=== PATIENT | male | born 1960 | race Caucasian/White ===

== ENCOUNTER 2017-08-15 13:53 | Inpatient (IN) ==
--- NOTE | 2017-08-15 15:18 | Internal Med History&Physical ---
Date of Encounter: 08/15/17 Time of Encounter: 15:18 Internal Medicine - H&P: HPI Chief complaint: SOB History of present illness: Mr. Allen is a 57 year old male medical history of end-stage renal on maintenance hemodialysis Sunday, who presented with productive cough of hick yellow tenacious phlegm and congestion this was not improved with oral antibiotics as an outpatient. he was evaluated by the ER states and due to concern of healthcare associated pneumonia, he was admitted for further evaluation and management. Past Med Surg Social Fam HX - Past Medical History Medical history: dialysis, renal disease Psychiatric history: no psych history - Social History Smoking Status: Current every day smoker Smokeless Tobacco Status: No Alcohol use: none Drug use: none Internal Medicine - H&P: Meds Cinacalcet [Sensipar] 30 mg PO DAILY 08/15/17 [History] Folic Acid/Vit Bcomp,C [Renal Vitamin Tablet] 0.8 mg PO DAILY 08/15/17 [History] Ferric Citrate [Auryxia] 1 tab PO AD PRN 08/16/17 [History] Albuterol Sulfate [Albuterol Inhaler] 1 puff IH Q4HR PRN #1 inhaler 08/20/17 [Rx ] Nicotine Patch [Nicoderm] 21 mg TD DAILY #30 patch.td24 08/20/17 [Rx] levoFLOXacin [Levaquin] 500 mg PO DAILY #5 tablet 08/20/17 [Rx] predniSONE [PredniSONE] 40 mg PO DAILY #5 tablet 08/20/17 [Rx] 3 Allergy/AdvReac Type Severity Reaction Status Date / Time No Known Allergies Allergy Verified 08/15/17 11:25 All Systems PM: A 10-system review of systems was performed and is negative for pertinent findings except as documented above in the HPI. - Constitutional Constitutional: fatigue, fever(s), no chills, no night sweats - Cardiovascular Cardiovascular ROS IM: dyspnea, no chest pain, no diaphoresis, no lightheadedness, no palpitations, no syncope - Respiratory Respiratory: cough, dyspnea, wheezing, no excessive phlegm production - Gastrointestinal Gastrointestinal: no abdominal pain, no diarrhea, no hematemesis, no hematochezia, no melena, no nausea, no vomiting - Neurological Neurological ROS: no confusion, no convulsions, no focal weakness, no numbness, no tingling, no tremor(s) - Head Head exam: Present: atraumatic, normocephalic - Neck Neck exam general surgery: Present: supple, trachea midline. Absent: lymphadenopathy - Respiratory Respiratory exam: Present: decreased breath sounds, rhonchi. Absent: accessory muscle use, rales, wheezes - Cardiovascular Cardiovascular exam: Present: RRR, +S1, +S2. Absent: diastolic murmur, gallop, rubs, systolic murmur - GI/Abdominal GI/Abdominal exam: Present: normal bowel sounds, soft, no peritoneal signs. Absent: distended, tenderness - Extremities Exam Extremities exam: Present: warm, radial pulses palpable and symmetrical. Absent : calf tenderness, cyanotic, pedal edema Internal Med - H&P Results - Labs CBC & Chem 7: 08/20/17 04:00 08/20/17 04:00 - Assessment and plan (1) Healthcare-associated pneumonia Status: Acute Assessment and plan: - SOB due to *Pneumonia - Blood Cx - Urine Legionella antigen - Antibiotics - CBCD, CMP in AM - Tylenol 650 mg PO q 4-6 hr PRN pain or fever - Home meds - check the list and restart accordingly - Heparin 5000 U SQ BID (2) ESRD (end stage renal disease) Status: Acute Assessment and plan: we'll continue maintenance hemodialys, Sunday, Nephrology was consulted for further evaluation and management (3) Anemia in chronic kidney disease Status: Acute Assessment and plan: hemoglobin target is10-11, ESAs as per outpatient protocol Qualifiers: Chronic kidney disease stage: unspecified stage Qualified Code(s): N18.9 - Chronic kidney disease, unspecified; D63.1 - Anemia in chronic kidney disease (4) Chronic kidney disease-mineral and bone disorder Status: Acute Assessment and plan: We will obtain IPTH , VIT D levels as wel as phos level, renal diet. (5) DVT prophylaxis Status: Acute Assessment and plan: SC heparin - Time Spent With Patient Total time spent is greater than 50% in coordination of care (as documented) at patient's floor/unit and/or counseling patient:
[2017-08-15] MEDS ORDERED: *HR* HYDROcodone/Acet 5/325 mg TABLET PO PRN (17:01)
[2017-08-15] MEDS ORDERED: Naloxone 0.4 MG/ML INJ IVP PRN (17:01)
[2017-08-15] MEDS: Piperacillin/Tazobactam 3.375 GM in 0.9 % Sodium Chloride Mini Bag 100 ML IVPB SCH (17:41)
[2017-08-15] MEDS: *HR* Heparin 5,000 UNIT/ML VIAL SQ SCH (17:41)
[2017-08-15] MEDS ORDERED: Vancomycin (wt based) 1,000 MG VIAL IVPB SCH (18:00)
[2017-08-15 18:07] LABS: INR 1.4; Prothrombin Time 15.4 Seconds (9.4-12.1)
[2017-08-16] MEDS ORDERED: Nicotine 21 MG PATCH.TD24 TD ONE (01:01)
[2017-08-16] MEDS: *HR* Heparin 5,000 UNIT/ML VIAL SQ SCH ×2 (05:55→16:20)
[2017-08-16] MEDS: Piperacillin/Tazobactam 3.375 GM in 0.9 % Sodium Chloride Mini Bag 100 ML IVPB SCH ×2 (05:55→16:20)
[2017-08-16 06:47] LABS: Basophils % 0.1 %; Hematocrit 36.8 % (37.5-50.1); Hemoglobin 12.3 g/dL (12.9-16.9); Immature Granulocytes % 0.9 % (0-4); Lymphocytes # 0.6 K/mcL (0.6-4.6); Lymphocytes % 5.3 %; Mean Corpuscular HGB Conc 33.4 g/dL (31.6-35.5); Mean Corpuscular Hemoglobin 29.4 pg (28.0-33.3); Mean Platelet Volume 10.3 fL (9.4-12.4); Monocytes # 0.6 K/mcL (0.0-1.3); Monocytes % 5.8 %; Neutrophils # 9.5 K/mcL (1.6-8.9); Platelet Count 258 K/mcL (140-400); Red Blood Count 4.18 M/mcL (4.19-5.50); Red Cell Distribution Width 14.1 % (11.5-14.5); Segmented Neutrophils % 87.9 %
[2017-08-16 07:16] LABS: Albumin 3.7 g/dL (3.5-5.7); Bilirubin,Total 0.2 mg/dL (0.3-1.0); Globulin 3.7 g/dL (2.4-3.5); Magnesium 2.4 mg/dL (1.6-2.6); Phosphorous 7.2 mg/dL (2.7-4.5); Potassium 4.3 mEq/L (3.5-5.1); Total Protein 7.4 g/dL (6.4-8.9)
--- NOTE | 2017-08-16 08:02 | Nephrology Consult Note ---
Date of Encounter: 08/16/17 Time of Encounter: 08:00 Assessment and Plan (1) ESRD (end stage renal disease) Current Visit: Yes Status: Acute Is seen by a founder ceo & president out of [place], dialyzes at [facility]. Continue to avoid nephrotoxins and renal dose all medications. Renal Diet. (2) Healthcare-associated pneumonia Current Visit: Yes Status: Acute Per primary team. (3) Anemia in chronic kidney disease Current Visit: Yes Status: Acute Hgb goal 10-11. 12.3 today, stable. Qualifiers: Qualified Code(s): N18.9 - Chronic kidney disease, unspecified; D63.1 - Anemia in chronic kidney disease History of Present Illness - Reason for Consult Consult date: 08/16/17 end stage renal disease - Chief Complaint PNA - History of Present Illness Mr. Allen is a 57 year old male that is a patient of Dr. Roberto in [place]. His current regimen is MWF at [facility], he did have a full treatment on Sunday of this week. He has been through the pre admission testing for a kidney transplant at [facility], but he has to quit smoking. It has been 3 days since his last cigarette and he is currently using Nicotine patches.He has a right tunneled HD cath that was exchanged about a month and a half ago. 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 He has been short of breath and has been for about a month. He is not on home oxygen and has been treated for outpatient Bronchitis/PNA with 2 z packs and other antibiotics. He is now admitted for IV antibiotics for HCAP. Denies chest pain, nausea, vomiting, diarrhea. Denies fever/chills. Past Med Surg Social Fam HX - Past Medical History Medical history: dialysis, renal disease Psychiatric history: no psych history - Social History Smoking Status: Current every day smoker Smokeless Tobacco Status: No Alcohol use: none Drug use: none Medications and Allergies Cinacalcet [Sensipar] 30 mg PO DAILY 08/15/17 [History] Folic Acid/Vit Bcomp,C [Renal Vitamin Tablet] 0.8 mg PO DAILY 08/15/17 [History] Ferric Citrate [Auryxia] 1 tab PO TIDWM 08/16/17 [History] 3 Allergy/AdvReac Type Severity Reaction Status Date / Time No Known Allergies Allergy Verified 08/15/17 11:25 Review of Systems ROS unobtainable: other (as per HPI.) Exam - Vital Signs Vital signs: Initial Vital Signs Temp Pulse Resp BP Pulse Ox 98.0 F 94 17 143/87 92 08/15/17 15:45 08/15/17 15:45 08/15/17 15:45 08/15/17 15:45 08/15/17 15:45 Vital Signs - Last 8 Hours Temp Pulse Resp BP Pulse Ox 08/16/17 06:57 97.5 F L 93 19 135/94 93 08/16/17 05:24 97.4 F L 96 18 147/96 89 08/16/17 01:22 138/77 08/16/17 00:36 98.5 F 117 18 190/66 91 Intake and Output 08/15/17 08/16/17 08/16/17 23:59 07:59 15:59 Intake Total 460 / 460 Output Total 200 / 200 Balance 260 / 260 Intake: IV Fluids 100 / 100 Zosyn 3.375 GM In 0.9 % Sodium 100 / 100 Chloride (Mini-Bag +) 100 ML @ 25 mls/hr IVPB Q12HR [facility] Rx#: [id number] Oral 360 / 360 Output: Urine 200 / 200 Other: Meal Dinner Percent of Meal Consumed 100% Weight 120 kg Patient Weight 08/16/17 23:59 Weight 120 kg - General Appearance General appearance: well-developed, well-nourished, appears started age EENT: ATNC, hearing intact, vision intact Neck: supple Respiratory: wheezing (throughout.) Cardiology: no edema, regular rate, regular rhythm, normal S1, normal S2 - Dialysis Access Dialysis Vascular Access: Venous Catheter (Permacath to right chest. DRSG C/D/I, ) Gastrointestinal: hypoactive bowel sounds, no tenderness, no guarding Integumentary: no rash, warm and dry Neurologic: alert and oriented x3 Psychiatric: mood/affect appropriate, cooperative Results - Lab Results 08/16/17 06:19 08/16/17 06:19 Most recent lab results Calcium 10.0 mg/dL (8.6-10.3) 08/16/17 06:19 Phosphorus 7.2 mg/dL (2.7-4.5) H 08/16/17 06:19 Magnesium 2.4 mg/dL (1.6-2.6) 08/16/17 06:19 Consult Discharge Plan - Plan Referrals: NONE,PCP [Primary Care Provider] -
[2017-08-16] MEDS: Nicotine 21 MG PATCH.TD24 TD SCH (08:28)
[2017-08-16] MEDS ORDERED: Levofloxacin 750 MG/150 ML 750 MG/150 ML BAG IVPB ONE (12:53)
[2017-08-16] MEDS: Ipratropium/Albuterol Neb 3 ML IH SCH ×3 (15:59→23:24)
[2017-08-16] MEDS: methylPREDNISolone 125 MG/2 ML VIAL IVP SCH (16:19)
[2017-08-16] MEDS ORDERED: 0.9 % Sodium Chloride 250 ML IVC PRN (18:19)
--- NOTE | 2017-08-16 19:08 | Internal Med Progress Note ---
Date of Encounter: 08/16/17 Time of Encounter: 11:00 - Assessment and plan (1) Healthcare-associated pneumonia Current Visit: Yes Status: Acute Assessment and plan: Will continue coverage for HCAP with IV vancomycin, Zosyn and Levaquin (2) ESRD (end stage renal disease) Current Visit: Yes Status: Acute Assessment and plan: we'll continue maintenance hemodialys, Sunday, Nephrology was consulted for further evaluation and management (3) Anemia in chronic kidney disease Current Visit: Yes Status: Acute Assessment and plan: hemoglobin target is10-11, ESAs as per outpatient protocol Qualifiers: Chronic kidney disease stage: stage 3 (moderate) Qualified Code(s): N18.3 - Chronic kidney disease, stage 3 (moderate); D63.1 - Anemia in chronic kidney disease (4) Chronic kidney disease-mineral and bone disorder Current Visit: Yes Status: Acute Assessment and plan: We will obtain IPTH , VIT D levels as wel as phos level, renal diet. (5) DVT prophylaxis Current Visit: Yes Status: Acute Assessment and plan: SC heparin - Time Spent With Patient Total time spent is greater than 50% in coordination of care (as documented) at patient's floor/unit and/or counseling patient: - Subjective Interval history: Patient still reports of shortness of breath with wheezing this morning and requiring supplemental oxygenation. - Constitutional Vitals: Temp Pulse Resp BP Pulse Ox 97.5 F L 99 19 147/89 93 08/16/17 16:35 08/16/17 16:35 08/16/17 16:35 08/16/17 16:35 08/16/17 16:35 - Respiratory Respiratory exam: Present: CTAB. Absent: accessory muscle use, rales, rhonchi, wheezes - Cardiovascular Cardiovascular exam: Present: RRR, +S1, +S2. Absent: diastolic murmur, gallop, rubs, systolic murmur Internal Medicine: Result - Labs CBC & Chem 7: 08/16/17 06:19 08/16/17 06:19 Labs: Short CBC 08/16/17 Range/Units 06:19 WBC 10.8 (4.3-11.1) K/mcL Hgb 12.3 L (12.9-16.9) g/dL Hct 36.8 L (37.5-50.1) % Plt Count 258 (140-400) K/mcL Neutrophils # 9.5 H (1.6-8.9) K/mcL BMP 08/16/17 06:19 Sodium 132 L Potassium 4.3 Chloride 92 L Carbon Dioxide 25 BUN 52 H Creatinine 7.79 H Glucose 189 H Calcium 10.0 Cardiac Enzymes 08/15/17 08/16/17 08/16/17 Range/Units 23:26 06:19 10:52 Troponin I < 0.03 0.05 H* 0.03 (< 0.04) ng/mL Liver Function 08/16/17 Range/Units 06:19 Total Bilirubin 0.2 L (0.3-1.0) mg/dL AST 20 (13-39) Units/L ALT 13 (7-52) Units/L Alkaline Phosphatase 89 (34-104) Units/L Albumin 3.7 (3.5-5.7) g/dL - ABG Interpretation ABG results: PT/INR, D-dimer PT 15.4 Seconds (9.4-12.1) H 08/15/17 17:30 Consult Discharge Plan - Plan Referrals: NONE,PCP [Primary Care Provider] -
[2017-08-17] MEDS: methylPREDNISolone 125 MG/2 ML VIAL IVP SCH ×4 (00:08→23:46)
[2017-08-17 02:25] LABS: Hepatitis B Surface Antigen Nonreactive (Nonreactive)
[2017-08-17 02:26] LABS: Hepatitis B Surface Antibody 62.42 mIU/mL
[2017-08-17] MEDS ORDERED: 0.9 % Sodium Chloride 1,000 ML ONE (03:57)
[2017-08-17] MEDS: Ipratropium/Albuterol Neb 3 ML IH SCH ×5 (04:00→19:17)
[2017-08-17] MEDS: *HR* Heparin 5,000 UNIT/ML VIAL SQ SCH ×2 (05:05→17:46)
[2017-08-17] MEDS: Piperacillin/Tazobactam 3.375 GM in 0.9 % Sodium Chloride Mini Bag 100 ML IVPB SCH ×2 (05:06→18:47)
[2017-08-17 06:09] LABS: Hematocrit 38.3 % (37.5-50.1); Mean Corpuscular HGB Conc 31.3 g/dL (31.6-35.5); Mean Corpuscular Volume 89.3 fL (83.0-100.0); Mean Platelet Volume 10.5 fL (9.4-12.4); Platelet Count 300 K/mcL (140-400); Red Blood Count 4.29 M/mcL (4.19-5.50); Red Cell Distribution Width 14.1 % (11.5-14.5)
[2017-08-17 06:26] LABS: Calcium 9.5 mg/dL (8.6-10.3); Potassium 4.2 mEq/L (3.5-5.1)
--- NOTE | 2017-08-17 09:05 | Nephrology Progress Note ---
Date of Encounter: 08/17/17 Time of Encounter: 09:03 - Assessment and Plan (1) ESRD (end stage renal disease) Current Visit: Yes Status: Acute ESRD, HD at [facility]. Encouraged to quit smoking so he could be considered for kidney transplant. Continue to avoid nephrotoxins and renal dose all meds. (2) Healthcare-associated pneumonia Current Visit: Yes Status: Acute Per primary team. (3) Anemia in chronic kidney disease Current Visit: Yes Status: Acute Goal Hgb 10-11. Hgb 12 today. Qualifiers: Chronic kidney disease stage: unspecified stage Qualified Code(s): N18.9 - Chronic kidney disease, unspecified; D63.1 - Anemia in chronic kidney disease Subjective Principal diagnosis: ESRD/Pneumonia Interval history: Pt seen and examined in HD, denies CP/SOB. Denies Nausea. Objective - Vital Signs Vital signs: Vital Signs Temp Pulse Resp BP Pulse Ox 08/17/17 07:33 25 87 08/17/17 07:13 97.5 F L 104 18 130/76 93 08/17/17 04:48 97.6 F 104 18 126/73 89 08/17/17 04:02 18 98 08/16/17 23:34 18 93 08/16/17 22:59 97.9 F 102 18 139/70 94 08/16/17 20:38 97.5 F L 100 18 152/87 92 08/16/17 20:03 18 90 08/16/17 19:50 97.4 F L 101 18 151/83 89 08/16/17 19:36 93 08/16/17 16:35 97.5 F L 99 19 147/89 93 08/16/17 15:59 18 89 08/16/17 11:02 97.5 F L 100 18 136/86 91 Intake and Output 08/16/17 08/17/17 08/17/17 23:59 07:59 15:59 Intake Total 340 / 340 265 / 265 360 / 360 Output Total 200 / 200 Balance 340 / 340 65 / 65 360 / 360 Intake: IV Fluids 100 / 100 25 / 25 Zosyn 3.375 GM In 0.9 % Sodium 100 / 100 25 / 25 Chloride (Mini-Bag +) 100 ML @ 25 mls/hr IVPB Q12HR [facility] Rx#: [id number] Oral 240 / 240 240 / 240 360 / 360 Output: Urine 200 / 200 Other: Meal Dinner Breakfast Percent of Meal Consumed 100% 100% Weight 121.9 kg Patient Weight 08/17/17 23:59 Weight 121.9 kg - General Appearance General appearance: Present: appears started age EENT: Present: ATNC, hearing intact, vision intact Neck: Present: supple Respiratory: Present: clear Cardiology: Present: no edema, regular rate, regular rhythm, normal S1, normal S2 Dialysis Vascular Access: Venous Catheter (Tunneled HD line, DRSG C/D/I) Gastrointestinal: Present: normoactive bowel sounds, no tenderness, no guarding Integumentary: Present: no rash, warm and dry Neurologic: Present: alert and oriented x3 Psychiatric: Present: mood/affect appropriate, cooperative - Lab 08/17/17 05:27 08/17/17 05:27 Most recent lab results Calcium 9.5 mg/dL (8.6-10.3) 08/17/17 05:27 Phosphorus 7.2 mg/dL (2.7-4.5) H 08/16/17 06:19 Magnesium 2.4 mg/dL (1.6-2.6) 08/16/17 06:19 Consult Discharge Plan - Plan Referrals: NONE,PCP [Primary Care Provider] -
[2017-08-17] MEDS: Nicotine 21 MG PATCH.TD24 TD SCH (09:09)
[2017-08-17] MEDS: Renal Vitamin 1 MG CAPSULE PO SCH (09:09)
[2017-08-17] MEDS ORDERED: 0.9 % Sodium Chloride 2,000 ML ONE (09:30)
[2017-08-17] MEDS ORDERED: *HR* Heparin 10,000 UNIT/10 ML VIAL IV PRN (09:54)
[2017-08-17] MEDS: Levofloxacin 500 MG/100 ML 500 MG/100 ML BAG IVPB SCH (17:46)
[2017-08-17] MEDS ORDERED: Vancomycin 500 MG in 0.9 % Sodium Chloride Mini Bag 100 ML IVPB ONE (18:00)
--- NOTE | 2017-08-17 19:10 | Internal Med Progress Note ---
Date of Encounter: 08/17/17 Time of Encounter: 11:00 - Assessment and plan (1) Healthcare-associated pneumonia Current Visit: Yes Status: Acute Assessment and plan: Will continue coverage for HCAP with IV vancomycin, Zosyn and Levaquin (2) ESRD (end stage renal disease) Current Visit: Yes Status: Acute Assessment and plan: Will continue maintenance hemodialys, Sunday, Nephrology following and appreciate recommendations (3) Anemia in chronic kidney disease Current Visit: Yes Status: Acute Assessment and plan: hemoglobin target is10-11, ESAs as per outpatient protocol Qualifiers: Chronic kidney disease stage: unspecified stage Qualified Code(s): N18.9 - Chronic kidney disease, unspecified; D63.1 - Anemia in chronic kidney disease (4) DVT prophylaxis Current Visit: Yes Status: Acute Assessment and plan: SC heparin - Time Spent With Patient Total time spent is greater than 50% in coordination of care (as documented) at patient's floor/unit and/or counseling patient: - Subjective Interval history: Patient reports of improvement of shortness of breath since starting IV antibiotics. - Constitutional Vitals: Temp Pulse Resp BP Pulse Ox 97.9 F 111 17 151/84 90 08/17/17 16:06 08/17/17 16:06 08/17/17 16:06 08/17/17 16:06 08/17/17 16:06 General appearance: Present: A&O X 3 - Respiratory Respiratory exam: Present: CTAB. Absent: accessory muscle use, rales, rhonchi, wheezes - Cardiovascular Cardiovascular exam: Present: RRR, +S1, +S2. Absent: diastolic murmur, gallop, rubs, systolic murmur Internal Medicine: Result - Labs CBC & Chem 7: 08/17/17 05:27 08/17/17 05:27 Labs: Short CBC 08/17/17 Range/Units 05:27 WBC 14.9 H (4.3-11.1) K/mcL Hgb 12.0 L (12.9-16.9) g/dL Hct 38.3 (37.5-50.1) % Plt Count 300 (140-400) K/mcL BMP 08/17/17 05:27 Sodium 132 L Potassium 4.2 Chloride 94 L Carbon Dioxide 20 L BUN 82 H Creatinine 9.16 H Glucose 169 H Calcium 9.5 - ABG Interpretation ABG results: PT/INR, D-dimer PT 15.4 Seconds (9.4-12.1) H 08/15/17 17:30 Consult Discharge Plan - Plan Referrals: NONE,PCP [Primary Care Provider] -
[2017-08-18] MEDS: Ipratropium/Albuterol Neb 3 ML IH SCH ×7 (00:06→23:01)
[2017-08-18 05:25] LABS: Hematocrit 38.9 % (37.5-50.1); Hemoglobin 12.3 g/dL (12.9-16.9); Mean Corpuscular HGB Conc 31.6 g/dL (31.6-35.5); Mean Corpuscular Hemoglobin 28.1 pg (28.0-33.3); Mean Corpuscular Volume 88.8 fL (83.0-100.0); Platelet Count 312 K/mcL (140-400); Red Blood Count 4.38 M/mcL (4.19-5.50); Red Cell Distribution Width 14.4 % (11.5-14.5)
[2017-08-18 05:45] LABS: Calcium 9.4 mg/dL (8.6-10.3); Potassium 4.3 mEq/L (3.5-5.1)
[2017-08-18] MEDS: *HR* Heparin 5,000 UNIT/ML VIAL SQ SCH ×2 (06:43→16:34)
[2017-08-18] MEDS: Piperacillin/Tazobactam 3.375 GM in 0.9 % Sodium Chloride Mini Bag 100 ML IVPB SCH ×2 (06:44→16:34)
[2017-08-18] MEDS: methylPREDNISolone 125 MG/2 ML VIAL IVP SCH (08:02)
[2017-08-18] MEDS: Renal Vitamin 1 MG CAPSULE PO SCH (08:03)
[2017-08-18] MEDS: Nicotine 21 MG PATCH.TD24 TD SCH (08:03)
--- NOTE | 2017-08-18 10:37 | Nephrology Progress Note ---
Date of Encounter: 08/18/17 Time of Encounter: 10:36 - Assessment and Plan (1) ESRD (end stage renal disease) Current Visit: Yes Status: Acute HD MWF. Renal vitamins. Renal dose medications. Renal diet. Additional dialysis and ultrafiltration as needed. No need for dialysis today. (2) Healthcare-associated pneumonia Current Visit: Yes Status: Acute Per primary team. Continue antibiotics. Patient states he is improving. Subjective Principal diagnosis: ESRD/Pneumonia Interval history: Patient seen he has no new complaints. He is feeling slightly better. He denies dyspnea. Objective - Vital Signs Vital signs: Vital Signs Temp Pulse Resp BP Pulse Ox 08/18/17 09:13 97.6 F 124 19 158/85 93 08/18/17 07:28 16 93 08/18/17 04:58 97.7 F 122 17 122/85 93 08/18/17 03:45 20 93 08/18/17 00:07 20 93 08/17/17 20:24 97.8 F 119 20 120/80 93 08/17/17 20:12 94 08/17/17 19:20 16 94 08/17/17 16:06 97.9 F 111 17 151/84 90 08/17/17 15:31 18 90 08/17/17 13:24 97.5 F L 18 122/72 08/17/17 12:30 110/65 08/17/17 12:15 108/71 08/17/17 12:00 106/74 08/17/17 11:45 112/75 08/17/17 11:30 113/79 08/17/17 11:15 122/72 08/17/17 11:00 117/72 08/17/17 10:45 110/77 Intake and Output 08/17/17 08/18/17 08/18/17 23:59 07:59 15:59 Intake Total 760 / 760 120 / 120 Balance 760 / 760 120 / 120 Intake: IV Fluids 100 / 100 Zosyn 3.375 GM In 0.9 % Sodium 100 / 100 Chloride (Mini-Bag +) 100 ML @ 25 mls/hr IVPB Q12HR [facility] Rx#: [id number] Oral 660 / 660 120 / 120 Other: Meal Dinner Percent of Meal Consumed 100% # Voids 1 Weight 118.388 kg Patient Weight 08/18/17 23:59 Weight 118.388 kg - General Appearance General appearance: Present: well-developed, well-nourished EENT: Present: ATNC Additional Comments: Tachycardic. Neurologic: Present: alert and oriented x3 Psychiatric: Present: mood/affect appropriate - Lab 08/18/17 05:04 08/18/17 05:04 Most recent lab results Calcium 9.4 mg/dL (8.6-10.3) 08/18/17 05:04 Phosphorus 7.2 mg/dL (2.7-4.5) H 08/16/17 06:19 Magnesium 2.4 mg/dL (1.6-2.6) 08/16/17 06:19 Consult Discharge Plan - Plan Referrals: NONE,PCP [Primary Care Provider] -
--- NOTE | 2017-08-18 18:33 | Internal Med Progress Note ---
Date of Encounter: 08/18/17 Time of Encounter: 11:00 - Assessment and plan (1) Healthcare-associated pneumonia Current Visit: Yes Status: Acute Assessment and plan: Patient still with expiratory wheezes but improving and reports of improvement shortness of breath. Will continue coverage for HCAP with IV vancomycin, Zosyn and Levaquin (2) ESRD (end stage renal disease) Current Visit: Yes Status: Acute Assessment and plan: Will continue maintenance hemodialys, Sunday, Nephrology following and appreciate recommendations (3) Anemia in chronic kidney disease Current Visit: Yes Status: Acute Assessment and plan: Hemoglobin stable at 12.3 this morning Continue to monitor Qualifiers: Chronic kidney disease stage: unspecified stage Qualified Code(s): N18.9 - Chronic kidney disease, unspecified; D63.1 - Anemia in chronic kidney disease (4) DVT prophylaxis Current Visit: Yes Status: Acute Assessment and plan: SC heparin - Time Spent With Patient Total time spent is greater than 50% in coordination of care (as documented) at patient's floor/unit and/or counseling patient: - Subjective Interval history: Patient continues to have improvement with shortness of breath since starting IV antibiotics treatment of HCAP - Constitutional Vitals: Temp Pulse Resp BP Pulse Ox 98.1 F 116 18 135/76 94 08/18/17 15:53 08/18/17 15:53 08/18/17 15:53 08/18/17 15:53 08/18/17 15:53 General appearance: Present: A&O X 3, no acute distress - Respiratory Respiratory exam: Present: wheezes (Bilateral expiratory wheezes) - Cardiovascular Cardiovascular exam: Present: RRR, +S1, +S2. Absent: diastolic murmur, gallop, rubs, systolic murmur Internal Medicine: Result - Labs CBC & Chem 7: 08/18/17 05:04 08/18/17 05:04 Labs: Short CBC 08/18/17 Range/Units 05:04 WBC 15.4 H (4.3-11.1) K/mcL Hgb 12.3 L (12.9-16.9) g/dL Hct 38.9 (37.5-50.1) % Plt Count 312 (140-400) K/mcL BMP 08/18/17 05:04 Sodium 134 L Potassium 4.3 Chloride 96 L Carbon Dioxide 21 L BUN 62 H Creatinine 6.83 H Glucose 177 H Calcium 9.4 - ABG Interpretation ABG results: PT/INR, D-dimer PT 15.4 Seconds (9.4-12.1) H 08/15/17 17:30 Consult Discharge Plan - Plan Referrals: NONE,PCP [Primary Care Provider] -
[2017-08-19] MEDS: Ipratropium/Albuterol Neb 3 ML IH SCH ×5 (03:28→23:12)
[2017-08-19] MEDS: Piperacillin/Tazobactam 3.375 GM in 0.9 % Sodium Chloride Mini Bag 100 ML IVPB SCH ×2 (05:06→16:48)
[2017-08-19] MEDS: *HR* Heparin 5,000 UNIT/ML VIAL SQ SCH ×2 (05:06→16:48)
[2017-08-19] MEDS: Nicotine 21 MG PATCH.TD24 TD SCH (08:14)
[2017-08-19 08:15] LABS: Hemoglobin 13.1 g/dL (12.9-16.9); Mean Corpuscular Hemoglobin 28.4 pg (28.0-33.3); Mean Corpuscular Volume 88.7 fL (83.0-100.0); Mean Platelet Volume 9.7 fL (9.4-12.4); Platelet Count 309 K/mcL (140-400); Red Blood Count 4.62 M/mcL (4.19-5.50); Red Cell Distribution Width 14.6 % (11.5-14.5)
[2017-08-19] MEDS: Renal Vitamin 1 MG CAPSULE PO SCH (08:15)
[2017-08-19] MEDS: predniSONE 20 MG TABLET PO SCH (08:15)
[2017-08-19 08:44] LABS: Potassium 4.9 mEq/L (3.5-5.1)
--- NOTE | 2017-08-19 10:31 | Nephrology Progress Note ---
Date of Encounter: 08/19/17 Time of Encounter: 10:31 - Assessment and Plan (1) ESRD (end stage renal disease) Current Visit: Yes Status: Acute HD MWF. Renal vitamins. Renal dose medications. Renal diet. Additional dialysis and ultrafiltration as needed. No need for dialysis today. (2) Healthcare-associated pneumonia Current Visit: Yes Status: Acute Per primary team. Continue antibiotics. Patient states he is improving. Subjective Principal diagnosis: ESRD/Pneumonia Interval history: Patient seen he has no new complaints. Objective - Vital Signs Vital signs: Vital Signs Temp Pulse Resp BP Pulse Ox 08/19/17 08:07 97.3 F L 94 18 154/86 95 08/19/17 03:42 97.6 F 89 20 150/85 94 08/19/17 00:18 97.5 F L 94 20 157/90 93 08/18/17 21:45 97.7 F 71 18 118/56 92 08/18/17 19:08 97.6 F 111 18 129/87 94 08/18/17 15:53 98.1 F 116 18 135/76 94 08/18/17 14:00 93 08/18/17 13:24 97.7 F 123 18 157/89 92 08/18/17 11:20 97.8 F 113 18 133/85 93 Intake and Output 08/18/17 08/19/17 08/19/17 23:59 07:59 15:59 Intake Total 720 / 720 580 / 580 240 / 240 Output Total 450 / 450 200 / 200 310 / 310 Balance 270 / 270 380 / 380 -70 / -70 Intake: IV Fluids 100 / 100 Zosyn 3.375 GM In 0.9 % Sodium 100 / 100 Chloride (Mini-Bag +) 100 ML @ 25 mls/hr IVPB Q12HR [facility] Rx#: [id number] Oral 720 / 720 480 / 480 240 / 240 Output: Urine 450 / 450 200 / 200 310 / 310 Other: Meal Dinner crackers Breakfast Percent of Meal Consumed 100% 100% 100% Weight 120.383 kg Patient Weight 08/19/17 23:59 Weight 120.383 kg - General Appearance General appearance: Present: well-developed, well-nourished Exam: He is talking on the phone. EENT: Present: ATNC Cardiology: Present: regular rate Neurologic: Present: alert and oriented x3 Psychiatric: Present: mood/affect appropriate - Lab 08/19/17 07:52 08/19/17 07:52 Most recent lab results Calcium 9.0 mg/dL (8.6-10.3) 08/19/17 07:52 Phosphorus 7.2 mg/dL (2.7-4.5) H 08/16/17 06:19 Magnesium 2.4 mg/dL (1.6-2.6) 08/16/17 06:19 Consult Discharge Plan - Plan Referrals: NONE,PCP [Primary Care Provider] -
[2017-08-19] MEDS: Levofloxacin 500 MG/100 ML 500 MG/100 ML BAG IVPB SCH (16:48)
--- NOTE | 2017-08-19 17:46 | Internal Med Progress Note ---
Date of Encounter: 08/19/17 Time of Encounter: 11:00 - Assessment and plan (1) Healthcare-associated pneumonia Current Visit: Yes Status: Acute Assessment and plan: Patient reports a feeling much better since the day of admission Still with productive cough Leukocytosis secondary to IV Solu-Medrol which has now been changed to oral prednisone Will continue 1 more additional day for coverage of HCAP with IV vancomycin, Zosyn and Levaquin (2) ESRD (end stage renal disease) Current Visit: Yes Status: Acute Assessment and plan: Will continue maintenance hemodialys, Sunday, Nephrology following and appreciate recommendations (3) Anemia in chronic kidney disease Current Visit: Yes Status: Acute Assessment and plan: Hemoglobin stable at 12.3 this morning Continue to monitor Qualifiers: Chronic kidney disease stage: unspecified stage Qualified Code(s): N18.9 - Chronic kidney disease, unspecified; D63.1 - Anemia in chronic kidney disease (4) DVT prophylaxis Current Visit: Yes Status: Acute Assessment and plan: SC heparin - Time Spent With Patient Total time spent is greater than 50% in coordination of care (as documented) at patient's floor/unit and/or counseling patient: - Subjective Interval history: Patient continues to have improvement with shortness of breath since starting IV antibiotics treatment of HCAP Patient with decreased expiratory wheezes with IV steroids and dual nebs - Constitutional Vitals: Temp Pulse Resp BP Pulse Ox 97.8 F 76 18 157/90 93 08/19/17 16:23 08/19/17 16:23 08/19/17 16:23 08/19/17 16:23 08/19/17 16:23 General appearance: Present: A&O X 3, no acute distress - Respiratory Respiratory exam: Present: CTAB. Absent: accessory muscle use, rales, rhonchi, wheezes - Cardiovascular Cardiovascular exam: Present: RRR, +S1, +S2. Absent: diastolic murmur, gallop, rubs, systolic murmur Internal Medicine: Result - Labs CBC & Chem 7: 08/19/17 07:52 08/19/17 07:52 Labs: Short CBC 08/19/17 Range/Units 07:52 WBC 18.7 H (4.3-11.1) K/mcL Hgb 13.1 (12.9-16.9) g/dL Hct 41.0 (37.5-50.1) % Plt Count 309 (140-400) K/mcL BMP 08/19/17 07:52 Sodium 136 Potassium 4.9 Chloride 101 Carbon Dioxide 22 L BUN 87 H Creatinine 8.96 H Glucose 95 Calcium 9.0 - ABG Interpretation ABG results: PT/INR, D-dimer PT 15.4 Seconds (9.4-12.1) H 08/15/17 17:30 Consult Discharge Plan - Plan Referrals: NONE,PCP [Primary Care Provider] -
[2017-08-20] MEDS: Ipratropium/Albuterol Neb 3 ML IH SCH ×3 (03:46→11:23)
[2017-08-20] MEDS ORDERED: 0.9 % Sodium Chloride 2,000 ML ONE (04:19)
[2017-08-20] MEDS: Piperacillin/Tazobactam 3.375 GM in 0.9 % Sodium Chloride Mini Bag 100 ML IVPB SCH (04:39)
[2017-08-20] MEDS: *HR* Heparin 5,000 UNIT/ML VIAL SQ SCH (04:40)
[2017-08-20] MEDS ORDERED: 0.9 % Sodium Chloride 250 ML IVC PRN (04:58)
[2017-08-20] MEDS ORDERED: 0.9 % Sodium Chloride 1,000 ML PRIME SCH (05:00)
[2017-08-20] MEDS: Renal Vitamin 1 MG CAPSULE PO SCH (09:37)
[2017-08-20] MEDS: Nicotine 21 MG PATCH.TD24 TD SCH (09:37)
[2017-08-20] MEDS: predniSONE 20 MG TABLET PO SCH (09:37)
[2017-08-20 09:40] LABS: Hematocrit 42.6 % (37.5-50.1); Mean Corpuscular HGB Conc 32.9 g/dL (31.6-35.5); Mean Corpuscular Hemoglobin 29.1 pg (28.0-33.3); Mean Corpuscular Volume 88.6 fL (83.0-100.0); Mean Platelet Volume 9.7 fL (9.4-12.4); Platelet Count 372 K/mcL (140-400); Red Blood Count 4.81 M/mcL (4.19-5.50); Red Cell Distribution Width 14.6 % (11.5-14.5)
[2017-08-20 10:23] VITALS: BP 126/73
--- NOTE | 2017-08-20 12:06 | Nephrology Progress Note ---
Date of Encounter: 08/20/17 Time of Encounter: 12:05 - Assessment and Plan (1) ESRD (end stage renal disease) Current Visit: Yes Status: Acute HD MWF. Renal vitamins. Renal dose medications. Renal diet. Additional dialysis and ultrafiltration as needed. Patient was seen on dialysis today. (2) Healthcare-associated pneumonia Current Visit: Yes Status: Acute Per primary team. Patient is being discharged today. Subjective Principal diagnosis: ESRD/Pneumonia Interval history: Patient seen on dialysis. He anticipates discharge today. Objective - Vital Signs Vital signs: Vital Signs Temp Pulse Resp BP Pulse Ox 08/20/17 10:18 97.5 F L 102 16 126/73 93 08/20/17 09:30 97.7 F 22 149/93 08/20/17 09:05 136/95 08/20/17 08:50 133/94 08/20/17 08:35 125/90 08/20/17 08:20 129/87 08/20/17 08:05 128/91 08/20/17 07:50 131/94 08/20/17 07:35 128/92 08/20/17 07:20 141/76 08/20/17 07:05 126/87 08/20/17 06:50 133/91 08/20/17 06:35 122/91 08/20/17 06:20 125/73 08/20/17 06:05 142/92 08/20/17 05:50 133/89 08/20/17 05:35 9705 F H 18 149/89 08/20/17 04:40 97.3 F L 94 18 143/89 95 08/20/17 00:28 97.4 F L 92 18 161/90 95 08/19/17 19:56 97.4 F L 83 18 158/97 94 08/19/17 16:23 97.8 F 76 18 157/90 93 Intake and Output 08/19/17 08/20/17 08/20/17 23:59 07:59 15:59 Intake Total 460 / 460 940 / 940 Output Total 250 / 250 400 / 400 3600 / 3600 Balance 210 / 210 540 / 540 -3600 / -3600 Intake: IV Fluids 100 / 100 100 / 100 Zosyn 3.375 GM In 0.9 % Sodium 100 / 100 100 / 100 Chloride (Mini-Bag +) 100 ML @ 25 mls/hr IVPB Q12HR [facility] Rx#: [id number] Oral 360 / 360 240 / 240 Intake, Rinseback and Flushes 600 / 600 Output: Urine 250 / 250 400 / 400 0 / 0 Total Dialysis (HD) Output 3600 / 3600 Other: Meal ham sandwich and gold fish Percent of Meal Consumed 100% Weight 120.293 kg Hemodialysis Net Fluid Removed 2322 3000 (mL) Patient Weight 08/20/17 23:59 Weight 120.293 kg - General Appearance General appearance: Present: well-developed, well-nourished EENT: Present: ATNC Cardiology: Present: regular rate Neurologic: Present: alert and oriented x3 Psychiatric: Present: mood/affect appropriate - Lab 08/20/17 04:00 08/20/17 04:00 Most recent lab results Calcium 9.0 mg/dL (8.6-10.3) 08/20/17 04:00 Phosphorus 7.2 mg/dL (2.7-4.5) H 08/16/17 06:19 Magnesium 2.4 mg/dL (1.6-2.6) 08/16/17 06:19 Consult Discharge Plan - Plan Referrals: NONE,PCP [Primary Care Provider] -
--- NOTE | 2017-08-20 13:24 | Discharge Summary ---
- NOTES TO OUTPATIENT PROVIDER Notes to Outpatient Provider: None Orders not resulted at time of discharge: Pending orders 08/15/17 17:01 Culture,Sputum with Gram Stain [RM] Routine Influenza A,B and RSV by PCR [MOLMIC] Routine Urinalysis reflex Microscopic [URIN] Routine 08/15/17 17:30 Culture,Blood [BC] Routine 08/21/17 04:00 BMP [Basic Metabolic Panel] AM 0400 Complete Blood Count w/o Diff [HEME] AM 0400 08/22/17 04:00 BMP [Basic Metabolic Panel] AM 0400 Complete Blood Count w/o Diff [HEME] AM 0400 Date of Encounter: 08/20/17 Time of Encounter: 11:00 - Discharge Diagnosis (1) Healthcare-associated pneumonia Priority: Primary Status: Acute (2) ESRD (end stage renal disease) Priority: Secondary Status: Acute (3) Anemia in chronic kidney disease Priority: Secondary Status: Acute Qualifiers: Chronic kidney disease stage: unspecified stage Qualified Code(s): N18.9 - Chronic kidney disease, unspecified; D63.1 - Anemia in chronic kidney disease Hospital course: Patient is a 57-year-old male with past medical history significant for end- stage renal disease on hemodialysis who presented to the ER on 08/15/17 due to shortness of breath. Patient reported that this symptoms did not improve after given oral antibiotics as an outpatient so decided to come in to the hospital for further evaluation. During patients hospital stay he was treated for hospital-acquired pneumonia with IV vancomycin, Zosyn and Levaquin and his symptoms improved. Patient was also treated by IV Solu-Medrol. Patient will be discharged to continue a 5 day course of Levaquin and oral prednisone in addition to using albuterol as needed. - Time Spent with Patient Total time spent providing and/or coordinating discharge services: - Discharge Medications Prescriptions: Albuterol Sulfate [Albuterol Inhaler] 1 puff IH Q4HR PRN #1 inhaler PRN Reason: Wheezing levoFLOXacin [Levaquin] 500 mg PO DAILY #5 tablet Nicotine Patch [Nicoderm] 21 mg TD DAILY #30 patch.td24 predniSONE [PredniSONE] 40 mg PO DAILY #5 tablet Home Medications: Cinacalcet [Sensipar] 30 mg PO DAILY 08/15/17 [History] Folic Acid/Vit Bcomp,C [Renal Vitamin Tablet] 0.8 mg PO DAILY 08/15/17 [History] Ferric Citrate [Auryxia] 1 tab PO AD PRN 08/16/17 [History] Albuterol Sulfate [Albuterol Inhaler] 1 puff IH Q4HR PRN #1 inhaler 08/20/17 [Rx ] Nicotine Patch [Nicoderm] 21 mg TD DAILY #30 patch.td24 08/20/17 [Rx] levoFLOXacin [Levaquin] 500 mg PO DAILY #5 tablet 08/20/17 [Rx] predniSONE [PredniSONE] 40 mg PO DAILY #5 tablet 08/20/17 [Rx] Allergies/Adverse Reactions: 3 Allergy/AdvReac Type Severity Reaction Status Date / Time No Known Allergies Allergy Verified 08/15/17 11:25 Date of admission: 08/15/17 17:01 Primary care physician: PCP NONE Consults: 08/15/17 15:56 Consult to Staffing Coordinator [CONS] Routine Reason for SW Consult: financial concerns 08/15/17 17:06 Consult to Nurse Navigator [CONS] Routine Comment: 08/15/17 17:07 Consult to Physician [CONS] Routine Consulting Provider: Harvinder Salomon Reason for Consult: esrd Time Notified: 17:08 Call Completed: Yes 08/16/17 18:30 Consult to Dialysis [CONS] ONCE 08/20/17 05:00 Consult to Dialysis [CONS] ONCE - Constitutional Vitals: Temp Pulse Resp BP Pulse Ox 97.5 F L 102 16 126/73 93 08/20/17 10:18 08/20/17 10:18 08/20/17 10:18 08/20/17 10:18 08/20/17 10:18 General appearance: Present: A&O X 3, no acute distress - Respiratory Respiratory exam: Present: CTAB. Absent: accessory muscle use, rales, rhonchi, wheezes - Cardiovascular Cardiovascular exam: Present: RRR, +S1, +S2. Absent: diastolic murmur, gallop, rubs, systolic murmur - Patient Status Disposition: Home, Self-Care - Discharge Instructions Instructions: Prednisone (By mouth), Nicotine (Absorbed through the skin), Levofloxacin (By mouth), Pneumonia (DC) Follow Up With: NONE,PCP [Primary Care Provider] -
[2017-08-20] MEDS ORDERED: Aminoglycoside Consult 1 EACH MC ONE (14:48)
== END 2017-08-20 14:49 | disposition home or self-care (01) | DRG 193 ==
LOC: 2ANU → SUATTDRO 17:01
PROVIDERS: ADMIT Internal Medicine Nephrology; ATTEND Hospitalist

== ENCOUNTER 2022-01-09 13:17 | Observation (INO) ==
[2022-01-09] MEDS ORDERED: Melatonin 3 MG TABLET PO PRN ×2 (15:36→21:05)
[2022-01-09] MEDS ORDERED: Naloxone 0.4 MG/ML INJ IVP PRN ×2 (15:36→21:05)
[2022-01-09] MEDS ORDERED: Ondansetron ODT 4 MG TAB.RAPDIS SL PRN ×2 (15:36→21:05)
[2022-01-09] MEDS ORDERED: *HR* Dextrose 50 % in Water (Syg) 50 ML SYRINGE IVP PRN ×2 (15:43→21:05)
[2022-01-09] MEDS ORDERED: D5% in Water 1,000 ML IVC PRN ×2 (15:43→21:05)
[2022-01-09] MEDS ORDERED: Dextrose Gel 15 GM/37.5 ML TUBE PO PRN ×4 (15:43→21:05)
[2022-01-09] MEDS ORDERED: *HR* HYDROcodone/Acet 5/325 mg TABLET PO PRN ×2 (16:40→21:05)
[2022-01-09] MEDS ORDERED: amLODIPine 5 MG TABLET PO SCH (16:45)
[2022-01-09] MEDS ORDERED: CefOXitin 1,000 MG VIAL ONE (16:51)
[2022-01-09] MEDS ORDERED: Iopamidol - 300 50 ML VIAL ONE (16:52)
[2022-01-09] MEDS ORDERED: *HR* Rocuronium Bromide 50 MG/5 ML VIAL ONE (16:58)
[2022-01-09] MEDS ORDERED: Lidocaine -MPF 2% 2 ML VIAL ONE (16:58)
[2022-01-09] MEDS ORDERED: *HR* Succinylcholine 200 MG/10 ML VIAL IVP ONE (16:58)
[2022-01-09] MEDS ORDERED: *HR* FentaNYL (PF) 100 MCG/2 ML VIAL ONE ×2 (16:58→18:17)
[2022-01-09] MEDS ORDERED: *HR* Propofol 200 MG/20 ML VIAL IVP ONE (16:58)
[2022-01-09 17:10] LABS: Amorphous Sediment,Urine Few per hpf (None-Few); Bilirubin,Urine Negative (Negative); Blood,Urine Trace (Negative); Clarity,Urine Turbid (Clear); Color,Urine Light-Yellow (Yellow); Glucose,Urine (UA) Normal (Normal); Ketones,Urine Negative (Negative); Leukocyte Esterase,Urine Negative (Negative); Mucus,Urine Few per lpf (None-Few); Nitrite,Urine Negative (Negative); Protein,Urine >=600 mg/dL (Neg-Trace); RBC,Urine 0-3 per hpf (0-3); Specific Gravity,Urine 1.018 (1.010-1.025); Urobilinogen,Urine Normal (Normal); WBC,Urine 0-3 per hpf (0-3)
[2022-01-09] MEDS ORDERED: Hydrocortisone Sodium Succ 100 MG/2 ML VIAL ONE (17:19)
[2022-01-09] MEDS ORDERED: Insulin LISPRO 300 UNITS/3 ML VIAL SUBQ SCH (18:00)
[2022-01-09] MEDS ORDERED: CefOXitin 2,000 MG VIAL ONE (18:03)
[2022-01-09] MEDS ORDERED: Ketamine HCL *QUVA* 50mg (1mL) SYRINGE ONE (18:11)
[2022-01-09] MEDS ORDERED: Ondansetron 4 MG/2 ML VIAL ONE (18:27)
[2022-01-09] MEDS ORDERED: *HR* HYDROmorphone (PF) 1 MG/ML SYRINGE ONE (19:35)
[2022-01-09] MEDS: *HR* HYDROmorphone (PF) 1 MG/ML SYRINGE IVP PRN ×3 (19:35→20:25)
[2022-01-09] MEDS ORDERED: *HR* Labetalol 20 MG/4 ML SYRINGE IVP ONE (19:47)
[2022-01-09] MEDS: *HR* Labetalol 20 MG/4 ML SYRINGE IVP PRN ×4 (19:50→20:46)
[2022-01-09] MEDS ORDERED: Tacrolimus [Prograf] 1 MG Capsule PO SCH (21:00)
[2022-01-09] MEDS: Tacrolimus [Prograf] 1 MG Capsule PO SCH (21:33)
[2022-01-09 22:46] LABS: Estimated Average Glucose 126 mg/dl
[2022-01-10] MEDS: Insulin LISPRO 300 UNITS/3 ML VIAL SUBQ SCH ×2 (00:39→06:19)
[2022-01-10 03:31] LABS: Basophils % 0.2 %; Hemoglobin 13.7 g/dL (12.9-16.9); Immature Granulocytes % 0.9 % (0-4); Lymphocytes # 0.3 K/mcL (0.6-4.6); Lymphocytes % 3.5 %; Mean Corpuscular HGB Conc 30.4 g/dL (31.6-35.5); Mean Corpuscular Hemoglobin 26.9 pg (28.0-33.3); Mean Corpuscular Volume 88.2 fL (83.0-100.0); Mean Platelet Volume 10.1 fL (9.4-12.4); Monocytes # 0.7 K/mcL (0.0-1.3); Monocytes % 7.8 %; Platelet Count 165 K/mcL (140-400); Red Cell Distribution Width 14.9 % (11.5-14.5); Segmented Neutrophils % 87.6 %; White Blood Count 9.2 K/mcL (4.3-11.1)
[2022-01-10 03:37] LABS: INR 1.1; Prothrombin Time 12.2 Seconds (9.4-12.1)
[2022-01-10 03:40] LABS: Activated Partial Thrombo Time 35.6 Seconds (26.0-36.0)
[2022-01-10 04:01] LABS: Albumin 3.9 g/dL (3.5-5.7); Albumin/Globulin Ratio 1.7 (1.1-2.2); Bilirubin,Total 0.4 mg/dL (0.3-1.0); Calcium 9.8 mg/dL (8.6-10.3); Chol/HDL Ratio 2.4 (0-4.9); Globulin 2.3 g/dL (2.4-3.5); Magnesium 1.6 mg/dL (1.6-2.6); Phosphorous 4.8 mg/dL (2.7-4.5); Potassium 5.2 mEq/L (3.5-5.1); Total Protein 6.2 g/dL (6.4-8.9)
[2022-01-10] MEDS ORDERED: Acetaminophen 325 MG TABLET PO SCH (06:29)
[2022-01-10] MEDS ORDERED: *HR* OxyCODONE Immed Rel 5 MG TABLET PO PRN (06:30)
[2022-01-10] MEDS ORDERED: Gabapentin 300 MG CAPSULE PO ONE (06:31)
[2022-01-10 07:48] VITALS: TEMP 98.2
[2022-01-10] MEDS: Tacrolimus [Prograf] 1 MG Capsule PO SCH (08:09)
[2022-01-10] MEDS ORDERED: predniSONE 5 MG TABLET PO SCH (09:00)
[2022-01-10] MEDS ORDERED: amLODIPine 5 MG TABLET PO SCH (09:00)
[2022-01-10] MEDS ORDERED: Tacrolimus [Prograf] 1 MG Capsule PO SCH (09:00)
[2022-01-10] MEDS ORDERED: Pantoprazole 40 MG VIAL IVP SCH ×2 (09:00)
[2022-01-10 10:58] VITALS: BP 170/67; PULSE 91; O2SAT 98
== END 2022-01-10 12:55 | disposition home or self-care (01) ==
LOC: 2ANU → SUATTDRO 14:48
PROVIDERS: ADMIT Hospitalist; ATTEND Internal Medicine